=== PATIENT | female | born 1995 | race Caucasian/White ===

== ENCOUNTER 2022-06-28 07:37 | Inpatient (IN) | payer OTHER ==
[~2022-06-28] VITALS: Ht 162.6 cm; Wt 95.3 kg
[2022-06-28] MEDS ORDERED: METHYLERGONOVINE MALEATE 0.2 MG/ML IM PRN ×2 (10:15→10:45)
[2022-06-28] MEDS ORDERED: CARBOPROST TROMETHAMINE 250 MCG/ML AMPUL IM PRN ×2 (10:15→10:45)
[2022-06-28] MEDS ORDERED: RHO(D) IMMUNE GLOBULIN 300 MCG/SYR IM NR (10:15)
[2022-06-28] MEDS: LACTATED RINGERS 1,000 ML IV SCH ×2 (10:15→14:27)
[2022-06-28] MEDS ORDERED: LACTATED RINGERS 1,000 ML IV SCH (10:15)
[2022-06-28] MEDS ORDERED: OXYTOCIN 30 UNITS/500ML NS PMX 500 ML IV SCH ×2 (10:15→10:45)
[2022-06-28] MEDS ORDERED: LIDOCAINE HCL 1% 20ML VIAL (Pyxis) INJ INFIL SCH ×2 (10:15→10:45)
[2022-06-28] MEDS ORDERED: NALOXONE HCL 0.4 MG/ML 1ML VIAL IM PRN (10:45)
[2022-06-28 11:57] LABS: BASOPHILS % 0.4 % (0.0-2.0); EOSINOPHILS % 2.6 % (0.0-5.0); HEMATOCRIT. 34.3 % (36.0-48.0); HEMOGLOBIN. 11.8 g/dL (12.0-16.0); MEAN CORPUSCULAR HEMOGLOBIN 28.6 pg (28.0-32.0); MEAN CORPUSCULAR VOLUME 83.2 fL (81.0-99.0); MEAN PLATELET VOLUME 11.5 fl (7.4-10.4); MONOCYTES % 7.9 % (2.0-8.0); NEUTROPHILS % 64.1 % (40.0-76.0); PLATELET 121 x1000/uL (130-400); RED BLOOD CELL COUNT 4.12 mill/uL (4.2-5.4); RED CELL DISTRIBUTION WIDTH 13.8 % (11.6-14.6)
[2022-06-28] MEDS ORDERED: MISOPROSTOL 100MCG TABLET PO SCH ×2 (12:00)
[2022-06-28 12:01] LABS: CLARITY URINE CLOUDY (CLEAR); COLOR URINE YELLOW (YELLOW); KETONES URINE NEGATIVE (NEGATIVE); LEUKOCYTE ESTERASE URINE 1+ (NEGATIVE); NITRITE URINE POSITIVE (NEGATIVE); OCCULT BLOOD URINE NEGATIVE (NEGATIVE); PROTEIN URINE NEGATIVE (NEGATIVE); SPECIFIC GRAVITY URINE 1.011 (1.005-1.030); UROBILINOGEN URINE 0.2 E.U./dL (0.2-1.0)
[2022-06-28 12:08] LABS: INR 0.9; PROTHROMBIN TIME 9.9 sec (9.6-11.0)
[2022-06-28 12:27] LABS: *AMPHETAMINES SCREEN URINE NEGATIVE (NEGATIVE); *BARBITURATES SCREEN URINE NEGATIVE (NEGATIVE); *BENZODIAZEPINES SCREEN URINE NEGATIVE (NEGATIVE); *COCAINE SCREEN URINE NEGATIVE (NEGATIVE); CANNABINOID URINE SCREEN NEGATIVE (NEGATIVE); METHADONE URINE SCREEN NEGATIVE (NEGATIVE); OPIATES URINE SCREEN NEGATIVE (NEGATIVE); PHENCYCLIDINE URINE SCREEN NEGATIVE (NEGATIVE)
[2022-06-28] MEDS: MISOPROSTOL 100MCG TABLET VG SCH ×3 (12:56→21:03)
[2022-06-28 13:43] LABS: HEPATITIS B SURFACE ANTIGEN NEGATIVE
[2022-06-28] MEDS ORDERED: BUTORPHANOL TARTRATE 1 MG/ML VIAL IV NR (23:15)
[2022-06-28] MEDS ORDERED: NON FORMULARY PATIENT HOME MED XX SCH (23:15)
[2022-06-29] MEDS: MISOPROSTOL 100MCG TABLET VG SCH ×2 (00:35→01:06)
[2022-06-29] MEDS ORDERED: NON FORMULARY PATIENT HOME MED XX SCH (01:00)
[2022-06-29] MEDS ORDERED: BUTORPHANOL TARTRATE 1 MG/ML VIAL IV NR ×2 (01:15→03:15)
[2022-06-29] MEDS: LACTATED RINGERS 1,000 ML IV SCH (03:31)
[2022-06-29] MEDS ORDERED: ROPIVACAINE HCL/PF EPIDURAL 200 ML EPI ONE (04:56)
[2022-06-29] MEDS ORDERED: ROPIVACAINE HCL/PF EPIDURAL 200 ML EPI SCH (05:00)
[2022-06-29] MEDS ORDERED: IBUPROFEN 400MG TABLET PO PRN (08:00)
[2022-06-29] MEDS ORDERED: RHO(D) IMMUNE GLOBULIN 300 MCG/SYR IM PRN (08:00)
[2022-06-29] MEDS ORDERED: GLYCERIN/WITCH HAZEL LEAF MEDICATED PAD TOP PRN (08:00)
[2022-06-29] MEDS ORDERED: OXYTOCIN 30 UNITS/500ML NS PMX 500 ML IV SCH (08:00)
[2022-06-29] MEDS ORDERED: BENZOCAINE/LANOLIN/ALOE VERA SPRAY TOP PRN (08:00)
[2022-06-29] MEDS ORDERED: HEMORRHOIDAL SUPP PR PRN (08:00)
[2022-06-29] MEDS ORDERED: LANOLIN OINT 7GM TUBE TOP PRN (08:00)
[2022-06-29] MEDS ORDERED: BISACODYL 10MG SUPP PR PRN (08:00)
[2022-06-29] MEDS ORDERED: DIPHENHYDRAMINE 25MG CAPSULE PO PRN (08:00)
[2022-06-29] MEDS ORDERED: PRENATAL VIT/FE FUMARATE/FA TABLET PO SCH (09:00)
[2022-06-29 11:00] VITALS: BP 108/58
[2022-06-29] MEDS ORDERED: NALOXONE HCL 0.4MG/ML VIAL IV PRN (11:15)
[2022-06-29 11:30] VITALS: BP 109/65
[2022-06-29] MEDS: IBUPROFEN 800MG TABLET PO PRN ×2 (11:32→17:45)
[2022-06-29 12:00] VITALS: BP 118/63
[2022-06-29 16:25] VITALS: BP 119/62
[2022-06-29] MEDS: SIMETHICONE 80MG TABLET CHEW PO SCH ×2 (17:30→20:08)
[2022-06-29] MEDS: MAGNESIUM/ALUMINUM HYDROXIDE/SIMETHICONE 30ML UDC PO SCH ×2 (17:30→21:00)
[2022-06-29 19:30] VITALS: BP 110/51
[2022-06-29] MEDS: ACETAMINOPHEN WITH CODEINE 300/30MG TABLET PO PRN (20:10)
[2022-06-29] MEDS ORDERED: DOCUSATE SODIUM 100MG CAPSULE PO SCH (21:00)
[2022-06-30] MEDS: IBUPROFEN 800MG TABLET PO PRN ×2 (00:39→10:44)
[2022-06-30 03:00] VITALS: BP 98/55
[2022-06-30] MEDS: FERROUS SULFATE 325MG TABLET PO SCH ×2 (07:30→12:30)
[2022-06-30 07:45] VITALS: BP 115/55
[2022-06-30] MEDS: SIMETHICONE 80MG TABLET CHEW PO SCH ×2 (08:00→12:34)
[2022-06-30 08:16] LABS: BASOPHILS % 0.5 % (0.0-2.0); EOSINOPHILS % 1.6 % (0.0-5.0); HEMATOCRIT. 30.1 % (36.0-48.0); LYMPHOCYTES % 23.2 % (20.0-50.0); MEAN CORPUSCULAR VOLUME 84.5 fL (81.0-99.0); MEAN PLATELET VOLUME 10.7 fl (7.4-10.4); MONOCYTES % 6.1 % (2.0-8.0); NEUTROPHILS % 68.6 % (40.0-76.0); PLATELET 82 x1000/uL (130-400); RED BLOOD CELL COUNT 3.56 mill/uL (4.2-5.4); RED CELL DISTRIBUTION WIDTH 14.4 % (11.6-14.6)
[2022-06-30] MEDS: MAGNESIUM/ALUMINUM HYDROXIDE/SIMETHICONE 30ML UDC PO SCH ×2 (08:45→12:30)
[2022-06-30] MEDS: ACETAMINOPHEN WITH CODEINE 300/30MG TABLET PO PRN (15:14)
[2022-06-30 15:28] VITALS: BP 111/57
[2022-06-30 16:11] LABS: HEMOGLOBIN 10.6 g/dL (12.0-16.0); MEAN CORPUSCULAR HEMOGLOBIN 28.7 pg (28.0-32.0); MEAN CORPUSCULAR VOLUME 84.1 fL (81.0-99.0); PLATELET 110 x1000/uL (130-400); RED BLOOD CELL COUNT 3.68 mill/uL (4.2-5.4); RED CELL DISTRIBUTION WIDTH 14.2 % (11.6-14.6)
== END 2022-06-30 17:20 | disposition home or self-care (01) | DRG 560 ==
LOC: 8 EST LDRP 07:37 → OBSVTOIN 07:37 → 8EST 06-29 11:13
PROVIDERS: ADMIT Obstetrics & Gynecology; ATTEND Obstetrics & Gynecology
PROC: 10E0XZZ Delivery of Products of Conception, External Approach (ICD-10-PCS; principal; 2022-06-29)
PROC: 3E0R3BZ Introduction of Anesthetic Agent into Spinal Canal, Percutaneous Approach (ICD-10-PCS; 2022-06-29)
PROC: 00HU33Z Insertion of Infusion Device into Spinal Canal, Percutaneous Approach (ICD-10-PCS; 2022-06-29)
DX: O99.02 Anemia complicating childbirth (principal); Z37.0 Single live birth; D62 Acute posthemorrhagic anemia; O99.12 Other diseases of the blood and blood-forming organs and certain disorders involving the immune mechanism complicating childbirth; Z20.822 Contact with and (suspected) exposure to COVID-19; Z3A.39 39 weeks gestation of pregnancy; D75.839 Thrombocytosis, unspecified
CPT/HCPCS: 36415; 76805; 76818; 80305; 81003; 85025; 85027; 86592; 86703; 86762; 86850; 86900; 87340; 87426; 99281; J0595; J2795; J7120; A4315; J2590